=== PATIENT | male | born 1970 | race Caucasian/White ===

== ENCOUNTER 2023-01-13 07:23 | Emergency (ER) | payer BC ==
[2023-01-13 07:42] VITALS: BP 163/89; PULSE 88; O2SAT 96
--- NOTE | 2023-01-13 07:45 | ERPHSYRPT ---
- History of Present Illness Time Seen by Provider: 01/13/23 07:44 Source: patient, family Exam Limitations: no limitations Patient Subjective Stated Complaint: Anxiety Triage Nursing Assessment: Patient ambulated back to ED and transferred self to bed. Patient A+O x3. Patient's skin pink, warm and dry. Patient complains of anxiety and feeling jittery this am. Patient states he feels like he has drank 8 cups of coffee. Patient denies pain or discomfort. Patient states he is under stress recently. 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 He is under a lot of stress at this time. He has some testing that needs to be performed for his job. He has a history of hypertension hyperlipidemia. In the last 3 to 4 days he is felt stressed and anxious. This morning, he felt as though he "drink 8 cups of coffee". He has no chest pain. He denies shortness of breath. He has not had a fever. He has no abdominal pain. He has no nausea vomiting or diarrhea. He has had episodes of anxiety and stress in the past. Within the last 2 to 3 years he underwent a cardiac catheterization which was "clear" per his report. Patient wants to be evaluated to make sure his heart is okay. Timing/Duration: day(s) (3-4) Severity of Symptoms-Max: mild Severity of Symptoms-Current: mild (To moderate) Context related to: work, other (Upcoming CPA accounting examinations) Associated Symptoms: anxiety, other (Stressed), No confused, No depressed Previous symptoms: same symptoms as today (Intermittently over the last several years) Allergies/Adverse Reactions: No Known Drug Allergies Allergy (Unverified 01/13/23 07:31) Home Medications: Amlodipine Besylate 1 tab PO DAILY 01/13/23 [History] Metoprolol Succinate 100 mg [Toprol Xl 100 MG] 1 tab PO HS 01/13/23 [History] Trandolapril 2 mg [Mavik 2 MG] 4 mg PO DAILY 01/13/23 [History] Hx Tetanus, Diphtheria Vaccination/Date Given: No Hx Influenza Vaccination/Date Given: No Hx Pneumococcal Vaccination/Date Given: No Immunizations Up to Date: Yes Travel Risk - International Travel Have you traveled outside of the country in past 3 weeks: No - Coronavirus Screening Are you exhibiting any of the following symptoms?: No Close contact with a COVID-19 positive Pt in past 14-21 Days: No - Vaccine Status Have you recieved a Covid-19 vaccination: No - Past Medical History Pertinent Past Medical History: No Neurological History: No Pertinent History ENT History: No Pertinent History Cardiac History: Hypertension Respiratory History: No Pertinent History Endocrine Medical History: No Pertinent History Musculoskeletal History: No Pertinent History GI Medical History: No Pertinent History History: No Pertinent History Psycho-Social History: No Pertinent History Male Reproductive Disorders: No Pertinent History - Past Surgical History Past Surgical History: Yes Neuro Surgical History: No Pertinent History Cardiac: Cardiac Catheterization Respiratory: No Pertinent History Gastrointestinal: No Pertinent History Genitourinary: No Pertinent History Musculoskeletal: No Pertinent History Male Surgical History: No Pertinent History Other Surgical History: polycystic kidney disease had left kidney removed at age 7 - Social History Smoking Status: Never smoker Exposure to second hand smoke: No Drug Use: none Patient Lives Alone: No - Review of Systems Constitutional: No Symptoms Eyes: No Symptoms Ears, Nose, & Throat: No Symptoms Respiratory: No Symptoms Cardiac: No Symptoms Abdominal/Gastrointestinal: No Symptoms Genitourinary Symptoms: No Symptoms Musculoskeletal: No Symptoms Skin: No Symptoms Neurological: No Symptoms Psychological: Anxiety, Other (Stressed), No Suicidal Ideations, No Homicidal Ideations Endocrine: No Symptoms Hematologic/Lymphatic: No Symptoms Immunological/Allergic: No Symptoms All Other Systems: Reviewed and Negative - Nursing Vital Signs Nursing Vital Signs: Initial Vital Signs Temperature 97.9 F 01/13/23 07:35 Pulse Rate 88 01/13/23 07:35 Respiratory Rate 18 01/13/23 07:35 Blood Pressure 163/89 01/13/23 07:35 O2 Sat by Pulse Oximetry 96 01/13/23 07:35 Pain Scale Pain Intensity 0 - Physical Exam General Appearance: no apparent distress, alert, anxiety, obese Eyes, Ears, Nose, Throat Exam: normal ENT inspection, moist mucous membranes Neck Exam: normal inspection, non-tender, supple, full range of motion Respiratory Exam: normal breath sounds, lungs clear, airway intact, No chest tenderness, No respiratory distress Cardiovascular Exam: regular rate/rhythm, normal heart sounds, normal peripheral pulses Gastrointestinal/Abdominal Exam: soft, normal bowel sounds, No tenderness Current Suicidality: denies suicide plan Neurological Exam: alert, normal mood/affect, 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, oriented x 3, anxious Appearance: appropriate appearance, appropriate insight, neat Behavior/Eye Contact/Speech: alert & cooperative, cooperative, good eye contact, normal speech Thoughts/Hallucinations: normal thought pattern, no apparent hallucination Skin Exam: normal color, warm, dry SpO2 Interpretation: normal SpO2: 96 O2 Delivery: Room Air - Course Nursing assessment & vital signs reviewed: Yes EKG Interpreted by Me: RATE (78), Sinus Rhythm, NORMAL AXIS, NORMAL INTERVALS, NORMAL QRS, NORMAL ST-T, Other (No acute ischemic changes on today's twelve-lead EKG.) Ordered Tests: Active Orders 24 hr Category Date Time Status Clean Catch Urine Specimen STAT Care 01/13/23 07:45 Active EKG-ER Only STAT Care 01/13/23 07:45 Active IV Insertion STAT Care 01/13/23 07:45 Active CBC W DIFF Stat Lab 01/13/23 07:45 Completed CMP Stat Lab 01/13/23 08:00 Completed T4 (Thyroxine) Stat Lab 01/13/23 08:00 Completed TROPONIN Q4H Lab 01/13/23 08:00 Completed TROPONIN Q4H Lab 01/13/23 12:00 Ordered TROPONIN Q4H Lab 01/13/23 16:00 Ordered TROPONIN Q4H Lab 01/13/23 20:00 Ordered TSH, 3RD Generation Stat Lab 01/13/23 08:00 Completed UA W/RFX UR CULTURE Stat Lab 01/13/23 07:57 Completed Urine Triage Profile Stat Lab 01/13/23 08:00 Completed Medication Summary Discontinued Medications Generic Name Dose Route Start Last Admin Trade Name Freq PRN Reason Stop Dose Admin Lorazepam 1 mg 01/13/23 08:13 01/13/23 08:41 Lorazepam 2 Mg/1 Ml 2 Mg Vial IV 01/13/23 08:14 1 mg STAT ONE Administration Lorazepam Confirm 01/13/23 08:39 Lorazepam 2 Mg/1 Ml 2 Mg Vial Administered 01/13/23 08:40 Dose 2 mg .ROUTE .STK-MED ONE Lab/Rad Data: Laboratory Result Diagrams 01/13/23 07:45 01/13/23 08:00 Laboratory Results 01/13/23 01/13/23 01/13/23 Range/Units 08:00 08:00 08:00 WBC (4.0-10.5) x10^3/uL RBC (4.1-5.6) x10^6/uL Hgb (12.5-18.0) g/dL Hct (42-50) % MCV (78-100) fL MCH (26-32) pg MCHC (32-36) g/dL RDW (11.5-14.0) % Plt Count (150-450) x10^3/uL MPV (7.5-11.0) fL Gran % (36.0-66.0) % Immature Gran % (Auto) (0.00-0.4) % Nucleat RBC Rel Count (0.00-0.1) % Eos # (Auto) (0-0.5) x10^3/uL Immature Gran # (Auto) (0.00-0.03) x10^3u/L Absolute Lymphs (auto) (1.0-4.6) x10^3/uL Absolute Monos (auto) (0.0-1.3) x10^3/uL Absolute Nucleated RBC (0.00-0.01) x10^3u/L Lymphocytes % (24.0-44.0) % Monocytes % (0.0-12.0) % Eosinophils % (0.00-5.0) % Basophils % (0.0-0.4) % Absolute Granulocytes (1.4-6.9) x10^3/uL Basophils # (0-0.4) x10^3/uL Sodium 139 (137-145) mmol/L Potassium 4.0 (3.5-5.1) mmol/L Chloride 105 (98-107) mmol/L Carbon Dioxide 25 (22-30) mmol/L Anion Gap 13.9 (5-15) MEQ/L BUN 16 (9-20) mg/dL Creatinine 0.97 (0.66-1.25) mg/dL Estimated GFR > 60.0 ML/MIN Glucose 134 H (74-106) mg/dL Calcium 8.9 (8.4-10.2) mg/dL Total Bilirubin 0.70 (0.2-1.3) mg/dL AST 32 (17-59) U/L ALT 43 (0-50) U/L Alkaline Phosphatase 70 (38-126) U/L Troponin I < 0.012 (0.000-0.034) ng/mL Serum Total Protein 7.5 (6.3-8.2) g/dL Albumin 4.4 (3.5-5.0) g/dL Thyroxine (T4) 7.49 (5.53-10.96) ug/dL TSH 3rd Generation 1.180 (0.47-4.68) mIU/L Urine Color (Yellow) Urine Appearance (Clear) Urine pH (4.6-8.0) Ur Specific [place] (1.005-1.030) Urine Protein (Negative) Urine Glucose (UA) (Negative) mg/dL Urine Ketones (Negative) Urine Blood (Negative) Urine Nitrite (Negative) Urine Bilirubin (Negative) Urine Urobilinogen (0.2) mg/dL Ur Leukocyte Esterase (Negative) U Hyaline Cast (Auto) (0-2) /LPF Urine Microscopic RBC (0-5) /HPF Urine Microscopic WBC (0-5) /HPF Ur Epithelial Cells (None Seen) /HPF Urine Bacteria (None Seen) /HPF Urine Culture Reflexed (NO) Urine Opiates Level NEGATIVE (NEGATIVE) Ur Methadone NEGATIVE (NEGATIVE) Urine Barbiturates NEGATIVE (NEGATIVE) Ur Phencyclidine (PCP) NEGATIVE (NEGATIVE) Urine Amphetamine NEGATIVE (NEGATIVE) U Benzodiazepine Level NEGATIVE (NEGATIVE) Urine Cocaine NEGATIVE (NEGATIVE) Urine Marijuana (THC) NEGATIVE (NEGATIVE) 01/13/23 01/13/23 Range/Units 07:57 07:45 WBC 5.0 (4.0-10.5) x10^3/uL RBC 4.97 (4.1-5.6) x10^6/uL Hgb 15.3 (12.5-18.0) g/dL Hct 44.2 (42-50) % MCV 88.9 (78-100) fL MCH 30.8 (26-32) pg MCHC 34.6 (32-36) g/dL RDW 12.2 (11.5-14.0) % Plt Count 196 (150-450) x10^3/uL MPV 10.2 (7.5-11.0) fL Gran % 50.2 (36.0-66.0) % Immature Gran % (Auto) 0.2 (0.00-0.4) % Nucleat RBC Rel Count 0.0 (0.00-0.1) % Eos # (Auto) 0.19 (0-0.5) x10^3/uL Immature Gran # (Auto) 0.01 (0.00-0.03) x10^3u/L Absolute Lymphs (auto) 1.69 (1.0-4.6) x10^3/uL Absolute Monos (auto) 0.55 (0.0-1.3) x10^3/uL Absolute Nucleated RBC 0.00 (0.00-0.01) x10^3u/L Lymphocytes % 34.1 (24.0-44.0) % Monocytes % 11.1 (0.0-12.0) % Eosinophils % 3.8 (0.00-5.0) % Basophils % 0.6 (0.0-0.4) % Absolute Granulocytes 2.48 (1.4-6.9) x10^3/uL Basophils # 0.03 (0-0.4) x10^3/uL Sodium (137-145) mmol/L Potassium (3.5-5.1) mmol/L Chloride (98-107) mmol/L Carbon Dioxide (22-30) mmol/L Anion Gap (5-15) MEQ/L BUN (9-20) mg/dL Creatinine (0.66-1.25) mg/dL Estimated GFR ML/MIN Glucose (74-106) mg/dL Calcium (8.4-10.2) mg/dL Total Bilirubin (0.2-1.3) mg/dL AST (17-59) U/L ALT (0-50) U/L Alkaline Phosphatase (38-126) U/L Troponin I (0.000-0.034) ng/mL Serum Total Protein (6.3-8.2) g/dL Albumin (3.5-5.0) g/dL Thyroxine (T4) (5.53-10.96) ug/dL TSH 3rd Generation (0.47-4.68) mIU/L Urine Color Yellow (Yellow) Urine Appearance Clear (Clear) Urine pH 5.5 (4.6-8.0) Ur Specific [place] 1.010 (1.005-1.030) Urine Protein Negative (Negative) Urine Glucose (UA) Negative (Negative) mg/dL Urine Ketones Negative (Negative) Urine Blood Negative (Negative) Urine Nitrite Negative (Negative) Urine Bilirubin Negative (Negative) Urine Urobilinogen 0.2 (0.2) mg/dL Ur Leukocyte Esterase Negative (Negative) U Hyaline Cast (Auto) NONE SEEN (0-2) /LPF Urine Microscopic RBC 0-2 (0-5) /HPF Urine Microscopic WBC 0-2 (0-5) /HPF Ur Epithelial Cells None Seen (None Seen) /HPF Urine Bacteria None Seen (None Seen) /HPF Urine Culture Reflexed NO (NO) Urine Opiates Level (NEGATIVE) Ur Methadone (NEGATIVE) Urine Barbiturates (NEGATIVE) Ur Phencyclidine (PCP) (NEGATIVE) Urine Amphetamine (NEGATIVE) U Benzodiazepine Level (NEGATIVE) Urine Cocaine (NEGATIVE) Urine Marijuana (THC) (NEGATIVE) - Progress Progress: improved, re-examined Progress Note: 01/13/23 08:55 This patient's medical issue is 1 of moderate complexity. The level of complexity in the work-up performed is based on the patient's past medical history, review of the patient's medication list, review of the patient's all ergy list, history of present illness and findings on physical examination. The work-up includes placement of an intravenous line, twelve-lead EKG, CBC, CMP, urinalysis, urine triage, T4 and TSH levels. I reviewed the results of the work-up. Patient acute emergent findings. Likely, his symptoms are secondary to stress and anxiety. Patient was given Ativan 1 mg IV in the emergency department. His will be driving him home. I will write for 6 tablets Ativan 0.5 mg. Take 1 tablet orally every 12 hours as needed for stress or anxiety. Counseled pt/family regarding: lab results, diagnosis, need for follow-up Medical Desision Making - Independent Historian Additional History obtained from: Spouse - Discussion of managment Agreed on:: Treatment plan, need for follow-up - Diagnostic Testing Diagnostic test were ordered, analyzed, and reviewed by me: Yes - Risk of complications The pt has a mod risk of morbidity or mortality based on: Need for prescription drug management - Departure Departure Disposition: Home Clinical Impression: Anxiety, Stress at work Condition: Stable Critical Care Time: No Referrals: DOCTOR,NO FAMILY [Primary Care Provider] - Follow up/PCP as directed Additional Instructions: Take your medication as prescribed. Follow-up with a primary care physician for further evaluation and management. Prescriptions: Lorazepam 0.5 mg [Ativan 0.5 MG] 0.5 mg PO Q12H PRN #6 tablet MDD 2 PRN Reason: Anxiety
[2023-01-13 08:06] LABS: Absolute Neutrophil Ct (ANC) 2.48 x10^3/uL (1.4-6.9); BASOPHIL % 0.6 % (0.0-0.4); Basophil (Absolute #) 0.03 x10^3/uL (0-0.4); Eosinophil % 3.8 % (0.00-5.0); Eosinophil (Absolute #) 0.19 x10^3/uL (0-0.5); Hematocrit 44.2 % (42-50); Hemoglobin 15.3 g/dL (12.5-18.0); IMMATURE GRAN # 0.01 x10^3u/L (0.00-0.03); IMMATURE GRAN % 0.2 % (0.00-0.4); Lymphocyte (Absolute #) 1.69 x10^3/uL (1.0-4.6); Lymphocytes % 34.1 % (24.0-44.0); Mean Cell Volume 88.9 fL (78-100); Mean Corpuscular Hemoglobin 30.8 pg (26-32); Mean Corpuscular Hgb Concent. 34.6 g/dL (32-36); Mean Platelet Volume 10.2 fL (7.5-11.0); Monocyte (Absolute #) 0.55 x10^3/uL (0.0-1.3); Monocytes % 11.1 % (0.0-12.0); Neutrophil % 50.2 % (36.0-66.0); Platelet Count 196 x10^3/uL (150-450); Red Blood Count 4.97 x10^6/uL (4.1-5.6); Red Cell Distribution Width 12.2 % (11.5-14.0)
[2023-01-13 08:13] LABS: Appearance Clear (Clear); Bacteria None Seen /HPF (None Seen); Bilirubin Negative (Negative); Blood Negative (Negative); Epithelial Cells None Seen /HPF (None Seen); Glucose, Urine Negative (Negative); Hyaline Casts NONE SEEN /LPF (0-2); Ketones Negative (Negative); Leukocyte Esterase Negative (Negative); Nitrite Negative (Negative); Ph 5.5 (4.6-8.0); Protein,Urine Dip Negative (Negative); RBC 0-2 /HPF (0-5); Urobilinogen 0.2 mg/dL (0.2); WBC 0-2 /HPF (0-5)
[2023-01-13] MEDS ORDERED: Ativan 2 MG/1 ML VIAL IV ONE (08:13)
[2023-01-13 08:33] LABS: ADD URINE CULTURE? NO (NO)
[2023-01-13 08:39] LABS: Amphetamine,Urine NEGATIVE (NEGATIVE); Barbiturate,Urine NEGATIVE (NEGATIVE); Benzodiazepine,Urine NEGATIVE (NEGATIVE); Cocaine,Urine NEGATIVE (NEGATIVE); Methadone,Urine NEGATIVE (NEGATIVE); Opiate,Urine NEGATIVE (NEGATIVE); PCP,Urine NEGATIVE (NEGATIVE); THC,Urine NEGATIVE (NEGATIVE)
[2023-01-13] MEDS ORDERED: Ativan 2 MG/1 ML VIAL ONE (08:39)
[2023-01-13 08:55] LABS: ALBUMIN 4.4 g/dL (3.5-5.0); ALKALINE PHOSPHATASE 70 U/L (38-126); ANION GAP 13.9 MEQ/L (5-15); BLOOD UREA NITROGEN 16 mg/dL (9-20); CHLORIDE 105 mmol/L (98-107); Calcium 8.9 mg/dL (8.4-10.2); Carbon Dioxide 25 mmol/L (22-30); Creatinine 1 0.97 mg/dL (0.66-1.25); EST GLOMERULAR FILTRATION RATE > 60.0 ML/MIN; Glucose 134 mg/dL (74-106); SGOT/AST 32 U/L (17-59); SGPT/ALT 43 U/L (0-50); SODIUM 139 mmol/L (137-145); T4 (Thyroxine) 7.49 ug/dL (5.53-10.96); Total Protein 7.5 g/dL (6.3-8.2)
== END 2023-01-13 09:47 | disposition home or self-care (01) ==
LOC: ED 07:23
DX: F41.9 Anxiety disorder, unspecified (principal); Z56.6 Other physical and mental strain related to work; I10 Essential (primary) hypertension; E78.5 Hyperlipidemia, unspecified; Z79.899 Other long term (current) drug therapy; Z28.310 Unvaccinated for COVID-19
CPT/HCPCS: 36000; 36415; 80053; 80307; 81001; 84436; 84443; 84484; 85025; 93005; 96374; 99283; J2060

== ENCOUNTER 2024-07-08 18:04 | Emergency (ER) | payer BC ==
[2024-07-08 18:25] VITALS: BP 138/77; RESP 18; TEMP 97.5
[2024-07-08] MEDS ORDERED: TORAdol 30 mg Injection ONE (18:43)
[2024-07-08] MEDS: TORAdol 30 mg Injection IM ONE (18:45)
--- NOTE | 2024-07-08 18:47 | ERPHSYRPT ---
- History of Present Illness Time Seen by Provider: 07/08/24 18:15 Exam Limitations: no limitations Patient Subjective Stated Complaint: pt states he has been having left hip pain for the past 5 days Triage Nursing Assessment: pt ambulated into the er; pt is axo x4; c/o left hip pain; pt states 5/10 pain to left hip; pt states pain is worse with movement; no bruising or deformity present to left hip; no shortening or rotation present to LLE; limited ROM to LLE due to pain; skin PDW; no respiratory distress present; vitals wnl Physician History: 53-year-old male with past medical history of hypertension presents to the ED with concerns of left hip pain which has been ongoing for the past 5 to 6 days. Pain is currently rated a 6 out of 10. Patient took some Flexeril about 2 hours prior to presentation. Patient has been using OTC Tylenol and Celebrex for symptomatic relief of the pain. Patient denies any trauma to his back. He reports a history of chronic back pain but his back pain has been under control for some time now. Patient denies any loss of bowel or bladder function. Patient denies any fever. Patient denies any weakness to his extremities. Occurred: days ago Quality: aching Associated Symptoms: none Allergies/Adverse Reactions: No Known Drug Allergies Allergy (Unverified 07/08/24 18:15) Home Medications: Amlodipine Besylate 1 tab PO DAILY 01/13/23 [History] Metoprolol Succinate 100 mg [Toprol Xl 100 MG] 1 tab PO HS 01/13/23 [History] Trandolapril 2 mg [Mavik 2 MG] 4 mg PO DAILY 01/13/23 [History] Atorvastatin Calcium 20 mg PO DAILY 07/08/24 [History] Hx Tetanus, Diphtheria Vaccination/Date Given: No (unknown) Hx Influenza Vaccination/Date Given: No Hx Pneumococcal Vaccination/Date Given: No Travel Risk - International Travel Have you traveled outside of the country in past 3 weeks: No - Emerging Infectious Disease Are you exhibiting symptoms associated with any current EIDs: No - Review of Systems Constitutional: No Symptoms Eyes: No Symptoms Ears, Nose, & Throat: No Symptoms Respiratory: No Symptoms, No Cough Cardiac: No Symptoms, No Chest Pain Abdominal/Gastrointestinal: No Symptoms, No Abdominal Pain, No Nausea, No Vomiting Genitourinary Symptoms: No Symptoms, No Dysuria, No Frequency Musculoskeletal: Other (Left hip pain), No Back Pain Skin: No Symptoms Neurological: No Symptoms, No Dizziness Psychological: No Symptoms - Past Medical History Pertinent Past Medical History: Yes Neurological History: No Pertinent History ENT History: No Pertinent History Cardiac History: High Cholesterol, Hypertension Respiratory History: No Pertinent History Endocrine Medical History: No Pertinent History Musculoskeletal History: No Pertinent History GI Medical History: No Pertinent History History: No Pertinent History Psycho-Social History: Anxiety Male Reproductive Disorders: No Pertinent History - Past Surgical History Past Surgical History: Yes Neuro Surgical History: No Pertinent History Cardiac: Cardiac Catheterization Respiratory: No Pertinent History Gastrointestinal: No Pertinent History Genitourinary: No Pertinent History Musculoskeletal: No Pertinent History Male Surgical History: No Pertinent History Other Surgical History: polycystic kidney disease had left kidney removed at age 7 - Social History Smoking Status: Smoker, status unknown Exposure to second hand smoke: No Drug Use: none Patient Lives Alone: No - Social Determinants of Health Will the patient participate in the screening: Yes Do you worry about a steady place to live?: No Do you have any problems with any of the following?: No known problems In the past 12 months,have you had to go without utilities?: No Transportation Issues: No Has anyone in your support network made you feel unsafe?: No Have you or anyone in your house had to go without enough: No - Nursing Vital Signs Nursing Vital Signs: Initial Vital Signs Temperature 97.5 F 07/08/24 18:17 Pulse Rate 77 07/08/24 18:17 Respiratory Rate 18 07/08/24 18:17 Blood Pressure 138/77 07/08/24 18:17 O2 Sat by Pulse Oximetry 96 07/08/24 18:17 Pain Scale Pain Intensity 5 - Physical Exam General Appearance: no apparent distress Eyes, Ears, Nose, Throat Exam: normal ENT inspection Neck Exam: normal inspection, supple Cardiovascular/Respiratory Exam: chest non-tender, normal breath sounds, regular rate/rhythm, heart sounds normal Gastrointestinal/Abdominal Exam: non-tender, soft Back Exam: normal inspection, normal range of motion, other (Negative bilateral straight leg test), No CVA tenderness, No vertebral tenderness, No rash, No decreased range of motion, No muscle spasm Hips Exam: left: pain (Tenderness to the left hip around the trochanteric region), bilateral: normal inspection, normal range of motion, no evidence of injury, bone tenderness, deformity, limited range of motion Legs Exam: bilateral leg: non-tender, normal inspection, normal range of motion, no evidence of injury Ankle Exam: bilateral ankle: non-tender, normal inspection, normal range of motion, no evidence of injury, abrasions/laceration, bone tenderness, deformity Foot Exam: bilateral foot: non-tender, normal inspection, normal range of motion, no evidence of injury, abrasions/lacerations DTR - Lower Extremities Exam: knee (R): 2+, knee (L): 2+, ankle (R): 2+, ankle (L): 2+ Neuro/Tendon Exam: normal sensation, normal motor functions Mental Status Exam: alert, oriented x 3, cooperative Skin Exam: normal color, warm, dry SpO2 Interpretation: normal SpO2: 96 O2 Delivery: Room Air - Course Nursing assessment & vital signs reviewed: Yes Ordered Tests: Medication Summary Generic Name Dose Route Start Last Admin Trade Name Eh PRN Reason Stop Dose Admin Ketorolac Tromethamine 30 mg 07/08/24 18:41 Ketorolac Tromethamine 30 Mg/Ml Inj IM 07/08/24 18:42 STAT ONE - Progress Progress: improved Progress Note: 07/08/24 18:53 Patient seen and evaluated on presentation. Assessment reviewed. Past medical record reviewed. Safety net applied. Patient given Toradol 30 mg IM for symptomatic relief of pain. Differential diagnosis includes but not limited to trochanteric bursitis VS sciatica VS back pain VS fracture VS dislocation VS contusion VS other musculoskeletal dysfunction. Patient denies any trauma to his hip and he has full range of motion to be his imaging is not indicated. I do not think patient has cauda equina because she had he has no weakness to his lower extremity and he also has no loss of bowel or bladder function. Do not think patient has any spinal abscess because he has no spinal tenderness and he also has no fever or risk factors for spinal abscess. Patient given prescription for prednisone 40 mg p.o. daily x 4 days as well as Flexeril 10 mg p.o. 3 times daily as needed for the pain. Patient advised to use ice and heat and OTC Tylenol for symptomatic relief. Patient advised to follow-up with PCP for further management when a walker. Patient agrees with plan. Patient discharged in stable condition. Medical Desision Making - Risk of complications Low Risk: Low risk of morbidity from additional dx testing or treatment - Departure Departure Disposition: Home Clinical Impression: Hip pain, left Condition: Stable Critical Care Time: No Instructions: Contusion (DC) Additional Instructions: Follow up with PCP within 1 week for physical therapy referral. May return to the ED if symptoms worsen. May use OTC Tylenol ibuprofen for pain. May also use ice or heat. Prescriptions: Cyclobenzaprine HCl 10 mg [Cyclobenzaprine 10 MG] 10 mg PO TID PRN 30 Days #20 tablet PRN Reason: Muscle Aches Prednisone 20 mg [Deltasone 20 mg] 40 mg PO DAILY 4 Days #8 tablet
[2024-07-08 19:10] VITALS: PULSE 80; O2SAT 97
== END 2024-07-08 19:09 | disposition home or self-care (01) ==
LOC: ED 18:04
DX: M25.552 Pain in left hip (principal); I10 Essential (primary) hypertension; E78.5 Hyperlipidemia, unspecified; Z79.52 Long term (current) use of systemic steroids; Z79.899 Other long term (current) drug therapy
CPT/HCPCS: 96372; 99282; J1885